=== PATIENT | female | born 1955 | race Caucasian/White ===

== ENCOUNTER 2022-12-30 13:21 | Outpatient (CLI) | payer MEDICARE | END 2022-12-30 13:22 | disposition home or self-care (01) | LOC: NM 13:21 | PROVIDERS: ATTEND Internal Medicine | DX: R10.84 Generalized abdominal pain (principal); R94.5 Abnormal results of liver function studies | CPT/HCPCS: 78227; A9537 ==

== ENCOUNTER 2023-04-01 10:52 | Outpatient (CLI) | payer MEDICARE ==
[2023-04-01 13:51] LABS: Bilirubin Neg (Negative); Blood, Urine Negative (Negative); Glucose, Urine (Dipstick) Normal (Negative); Ketone, Urine 5 mg/dL (Negative); Leukocyte Negative (Negative); Nitrite Negative (Negative); Protein, Urine (Dipstick) 30 mg/dl (Neg-Trace)
[2023-04-01 13:53] LABS: Clarity Hazy (Clear)
[2023-04-01 14:23] LABS: Prothrombin Time 10.4 sec (9.5-12.1)
== END 2023-04-01 10:53 | disposition home or self-care (01) ==
LOC: LABBT 10:52
PROVIDERS: ATTEND Orthopaedic Surgery
DX: Z01.818 Encounter for other preprocedural examination (principal); M17.11 Unilateral primary osteoarthritis, right knee; J98.6 Disorders of diaphragm; K44.9 Diaphragmatic hernia without obstruction or gangrene; Z98.890 Other specified postprocedural states
CPT/HCPCS: 71046; 81003; 85610; 87081; 93005; 93010

== ENCOUNTER 2023-04-06 06:57 | Inpatient (IN) | payer MEDICARE ==
[2023-04-01 12:15] VITALS: BMI 35.9
[2023-04-01 13:58] LABS: #Basophils 0.1 10x3/uL (0.0-0.2); #Eosinphils 0.2 10x3/uL (0.0-0.5); #Monocytes 0.5 10x3/uL (0.0-1.1); #Neutrophils 2.6 10x3/uL (1.5-8.4); %Basophils 1.5 % (0.0-2.0); %Eosinophils 2.9 % (0.0-6.0); %Lymphocytes 41.6 % (18.0-47.0); %Monocytes 9.2 % (0.0-10.0); %Neutrophils 44.5 % (40.0-75.0); Hemoglobin 12.5 g/dL (12.0-15.5); Mean Corpuscular HGB CONC 30.5 g/dL (32.0-36.0); Mean Corpuscular Hemoglobin 24.6 pg (27.0-33.0); Mean Corpuscular Volume 80.6 fl (81.6-98.3); Mean Platelet Volume 10.8 fl (7.4-10.4); Platelet Count 427 10x3/uL (150-450); RBC Distribution Width 14.7 % (11.5-14.5); Red Blood Cell (RBC) Count 5.09 10x6/uL (3.90-5.03); White Blood Cell (WBC) Count 5.9 10x3/uL (3.5-10.5)
[2023-04-01 14:19] LABS: Anion Gap 15 mmol/L (10-20); BUN (Urea Nitrogen) 19 mg/dL (9.8-20.1); Calc. Creatinine Clearance 0 mL/min (70-130); Calcium 9.4 mg/dL (7.8-10.44); Carbon Dioxide 24 mmol/L (23-31); Chloride 106 mmol/L (98-107); Estimated GFR 73; Glucose 82 mg/dL (80-115); Potassium 4.6 mmol/L (3.5-5.1); Sodium 140 mmol/L (136-145)
[2023-04-06] MEDS ORDERED: Bupivacaine PF 0.5% 30 ML VIAL ONE (08:02)
[2023-04-06] MEDS ORDERED: Midazolam HCl 2 mg/2 ml Vial ONE ×2 (08:02→13:41)
[2023-04-06] MEDS ORDERED: fentaNYL 50 mcg/mL 1 mL Vial ONE ×3 (08:02→12:32)
[2023-04-06] MEDS ORDERED: Tranexamic Acid 1,000 MG/10 ML VIAL ONE ×2 (08:12→11:58)
[2023-04-06] MEDS ORDERED: Vancomycin (BATCH) 1.5 GM/300 ML BAG ONE (08:13)
[2023-04-06] MEDS ORDERED: Sodium Chloride 0.9% 100 ML ONE ×2 (08:13→09:22)
[2023-04-06] MEDS ORDERED: CEFAZOLIN 2 GM VIAL ONE (09:22)
[2023-04-06] MEDS ORDERED: Bupivacaine 0.25% HCL 30 ML VIAL ONE (09:22)
[2023-04-06] MEDS ORDERED: fentaNYL 50 mcg/mL 1 mL Vial SLOW IVP PRN (09:50)
[2023-04-06] MEDS ORDERED: Dexamethasone 20 MG/5 ML VIAL ONE (10:00)
[2023-04-06] MEDS ORDERED: PROPOFOL 200 MG/20 ML VIAL ONE (10:00)
[2023-04-06] MEDS ORDERED: Bupivacaine HCl 0.5%/Epinephrine 1:200,000/PF 30 ml Vial ONE (10:00)
[2023-04-06] MEDS ORDERED: Ondansetron PF 4 MG/2 ML Vial IVP PRN ×2 (10:00→11:42)
[2023-04-06] MEDS ORDERED: Zolpidem Tartrate 5 MG TAB PO PRN ×2 (10:00→11:42)
[2023-04-06] MEDS ORDERED: Ropivacaine 0.2% 550 ML 550 ML NERVE BLCK SCH (10:00)
[2023-04-06] MEDS ORDERED: Lidocaine 1% PF 5 ML VIAL ONE (10:00)
[2023-04-06] MEDS ORDERED: Ketorolac Tromethamine 30 MG/ML VIAL ONE ×2 (10:00→10:14)
[2023-04-06] MEDS ORDERED: Promethazine HCl 25 MG/ML VIAL IM PRN ×2 (10:00→11:42)
[2023-04-06] MEDS ORDERED: Ondansetron PF 4 MG/2 ML Vial ONE ×3 (10:00→10:14)
[2023-04-06] MEDS ORDERED: Dexamethasone 4 mg/ml Vial ONE (10:14)
[2023-04-06] MEDS ORDERED: diphenhydrAMINE 25 MG CAP PO PRN (11:42)
[2023-04-06] MEDS ORDERED: Acetaminophen 325 MG TAB PO PRN (11:42)
[2023-04-06] MEDS ORDERED: Tranexamic Acid 1,000 MG in Sodium Chloride 0.9% 100 ML IVPB SCH (11:45)
[2023-04-06] MEDS ORDERED: HYDROmorphone 2 MG/ML VIAL ONE (11:47)
[2023-04-06] MEDS ORDERED: fentaNYL PF 100 MCG/2 ML SYRINGE ONE ×2 (11:47→11:58)
[2023-04-06] MEDS: Ketorolac Tromethamine 30 MG/ML VIAL IVP SCH ×2 (14:47→16:50)
[2023-04-06] MEDS: Sodium Chloride 0.9% 1,000 ML IV SCH (14:47)
[2023-04-06] MEDS ORDERED: FLU VACC QS2023(65UP)/MF59C/PF 60 MCG/0.5 ML SYRINGE IM ONE (15:45)
[2023-04-06] MEDS: CEFAZOLIN 2 GM in Sodium Chloride 0.9% 100 ML IVPB SCH (16:53)
[2023-04-06] MEDS: Lubiprostone 24 MCG CAP PO SCH (16:54)
[2023-04-06] MEDS: HYDROcodone/Acetaminophen 10/325 mg Tablet PO PRN ×2 (17:08→21:12)
[2023-04-06] MEDS ORDERED: Vancomycin (BATCH) 1.5 GM in Premix 1 BAG IVPB SCH (21:00)
[2023-04-06] MEDS: Aspirin 81 mg Enteric Coated Tablet PO SCH (21:12)
[2023-04-07] MEDS: traMADol HCl 50 MG TAB PO PRN ×2 (00:04→15:46)
[2023-04-07] MEDS: Ketorolac Tromethamine 30 MG/ML VIAL IVP SCH ×5 (00:04→23:23)
[2023-04-07] MEDS: Sodium Chloride 0.9% 1,000 ML IV SCH ×3 (00:05→18:42)
[2023-04-07] MEDS: CEFAZOLIN 2 GM in Sodium Chloride 0.9% 100 ML IVPB SCH (00:44)
[2023-04-07] MEDS: HYDROcodone/Acetaminophen 10/325 mg Tablet PO PRN ×3 (04:25→20:11)
[2023-04-07] MEDS: Levothyroxine Sodium 100 MCG TAB PO SCH (05:47)
[2023-04-07 07:46] LABS: Hematocrit 30.9 % (36.0-47.0); Hemoglobin 9.3 g/dL (12.0-16.0); Mean Corpuscular HGB CONC 30.1 g/dL (32.0-36.0); Mean Corpuscular Hemoglobin 25.3 pg (27.0-31.0); Mean Corpuscular Volume 84.2 fl (78.0-98.0); Mean Platelet Volume 10.9 fL (7.4-10.4); Platelet Count 324 10x3/uL (130-400); RBC Distribution Width 15.2 % (11.5-14.5); Red Blood Cell (RBC) Count 3.67 mill/uL (4.20-5.40); White Blood Cell (WBC) Count 10.7 10x3/uL (4.8-10.8)
[2023-04-07] MEDS: Senokot S 8.6-50 MG TAB PO SCH ×2 (08:53→20:12)
[2023-04-07] MEDS: DULoxetine 60 MG CAP PO SCH (08:53)
[2023-04-07] MEDS: Ferrous Gluconate 324 MG TAB PO SCH ×2 (08:53→18:41)
[2023-04-07] MEDS: Multivitamin W/ Minerals 1 TAB PO SCH (08:53)
[2023-04-07] MEDS: Aspirin 81 mg Enteric Coated Tablet PO SCH ×2 (08:53→20:12)
[2023-04-07] MEDS: Atorvastatin Calcium 40 MG TAB PO SCH (08:54)
[2023-04-07] MEDS: Lubiprostone 24 MCG CAP PO SCH ×2 (10:40→18:42)
[2023-04-08] MEDS: Levothyroxine Sodium 100 MCG TAB PO SCH (05:16)
[2023-04-08] MEDS: HYDROcodone/Acetaminophen 10/325 mg Tablet PO PRN ×4 (05:17→21:11)
[2023-04-08 06:01] LABS: Hematocrit 30.8 % (36.0-47.0); Hemoglobin 9.4 g/dL (12.0-16.0); Mean Corpuscular HGB CONC 30.5 g/dL (32.0-36.0); Mean Corpuscular Hemoglobin 25.3 pg (27.0-31.0); Mean Platelet Volume 10.6 fL (7.4-10.4); Platelet Count 323 10x3/uL (130-400); RBC Distribution Width 15.2 % (11.5-14.5); Red Blood Cell (RBC) Count 3.71 mill/uL (4.20-5.40); White Blood Cell (WBC) Count 11.5 10x3/uL (4.8-10.8)
[2023-04-08] MEDS: Ketorolac Tromethamine 30 MG/ML VIAL IVP SCH (06:35)
[2023-04-08] MEDS: Sodium Chloride 0.9% 1,000 ML IV SCH ×3 (06:39→23:52)
[2023-04-08] MEDS: traMADol HCl 50 MG TAB PO PRN (08:38)
[2023-04-08] MEDS: Multivitamin W/ Minerals 1 TAB PO SCH (08:39)
[2023-04-08] MEDS: Lubiprostone 24 MCG CAP PO SCH ×2 (08:39→17:04)
[2023-04-08] MEDS: Senokot S 8.6-50 MG TAB PO SCH ×2 (08:39→21:11)
[2023-04-08] MEDS: Ferrous Gluconate 324 MG TAB PO SCH ×2 (08:40→17:04)
[2023-04-08] MEDS: DULoxetine 60 MG CAP PO SCH (08:40)
[2023-04-08] MEDS: Aspirin 81 mg Enteric Coated Tablet PO SCH ×2 (08:40→21:11)
[2023-04-08] MEDS: Atorvastatin Calcium 40 MG TAB PO SCH (08:41)
[2023-04-08] MEDS: Polyethylene Glycol 3350 17 GM Packet PO PRN ×2 (10:08→21:11)
[2023-04-08] MEDS ORDERED: Atorvastatin Calcium 40 MG TAB PO SCH (21:00)
[2023-04-09] MEDS: HYDROcodone/Acetaminophen 10/325 mg Tablet PO PRN ×4 (02:01→15:29)
[2023-04-09 05:25] LABS: Hematocrit 29.5 % (36.0-47.0); Hemoglobin 8.9 g/dL (12.0-16.0); Mean Corpuscular HGB CONC 30.2 g/dL (32.0-36.0); Mean Corpuscular Hemoglobin 25.1 pg (27.0-31.0); Mean Corpuscular Volume 83.1 fl (78.0-98.0); Mean Platelet Volume 10.4 fL (7.4-10.4); Platelet Count 302 10x3/uL (130-400); RBC Distribution Width 15.5 % (11.5-14.5); Red Blood Cell (RBC) Count 3.55 mill/uL (4.20-5.40); White Blood Cell (WBC) Count 9.4 10x3/uL (4.8-10.8)
[2023-04-09] MEDS: Levothyroxine Sodium 100 MCG TAB PO SCH (06:36)
[2023-04-09] MEDS: Multivitamin W/ Minerals 1 TAB PO SCH (10:14)
[2023-04-09] MEDS: DULoxetine 60 MG CAP PO SCH (10:14)
[2023-04-09] MEDS: Senokot S 8.6-50 MG TAB PO SCH (10:15)
[2023-04-09] MEDS: Ferrous Gluconate 324 MG TAB PO SCH (10:15)
[2023-04-09] MEDS: Lubiprostone 24 MCG CAP PO SCH (10:16)
[2023-04-09] MEDS: Aspirin 81 mg Enteric Coated Tablet PO SCH (10:16)
[2023-04-09] MEDS: traMADol HCl 50 MG TAB PO PRN (12:46)
[2023-04-09 13:12] VITALS: BP 104/63; TEMP 98.1
== END 2023-04-09 16:31 | disposition home or self-care (01) | DRG 470 ==
LOC: SDC 06:57 → SURG A 14:39 → OBSVTOIN 04-07 15:09
PROVIDERS: ADMIT Orthopaedic Surgery; ATTEND Orthopaedic Surgery
PROC: 0SRC0J9 Replacement of Right Knee Joint with Synthetic Substitute, Cemented, Open Approach (ICD-10-PCS; principal; 2023-04-06)
PROC: 3E033XZ Introduction of Vasopressor into Peripheral Vein, Percutaneous Approach (ICD-10-PCS; 2023-04-06)
DX: M17.11 Unilateral primary osteoarthritis, right knee (principal); E78.00 Pure hypercholesterolemia, unspecified; Z96.652 Presence of left artificial knee joint; Z87.891 Personal history of nicotine dependence; Z83.3 Family history of diabetes mellitus; Z80.9 Family history of malignant neoplasm, unspecified; Z82.49 Family history of ischemic heart disease and other diseases of the circulatory system
CPT/HCPCS: 36415; 80048; 85025; 85027; 86850; 86900; 86901; 96365; 96366; 96367; 96375; 96376; A4306; C1713; C1776; G0378; J1100; J1170; J1885; J2250; J2405; J2704; J2795; J3010; J3370; J3490; S0020